=== PATIENT | male | born 1965 | race Two or more races ===

== ENCOUNTER 2024-08-23 11:06 | Inpatient (IN) | payer OTHER ==
[~2024-08-23] VITALS: Ht 195.6 cm; Wt 80.5 kg
[2024-08-23 11:36] LABS: Basophils # (auto) 0 10 ^3/uL (0-0.2); Basophils % (auto) 0.2 % (0.0-2.0); Eosinophils # (auto) 0 10 ^3/uL (0-0.8); Eosinophils % (auto) 0.1 % (0.0-7.0); Hematocrit 36.7 % (41.0-53.0); Hemoglobin 12.1 g/dL (13.5-17.5); Lymphocytes # (auto) 0.8 10 ^3/uL (0.4-5.4); Lymphocytes % (auto) 9.4 % (10.0-50.0); Mean Corpuscular Hemoglobin 27.5 pg (28.0-32.0); Mean Corpuscular Volume 83.3 fL (80.0-100.0); Monocytes # (auto) 0.5 10 ^3/uL (0-1.3); Monocytes % (auto) 6.5 % (0.0-12.0); Neutrophils % (auto) 83.8 % (37.0-80.0); Platelet Count (auto) 294 10^3/uL (140-450); Red Blood Cells 4.41 10^6/uL (4.5-5.90); White Blood Cell 8.3 10^3/uL (4.4-10.8)
[2024-08-23 11:53] LABS: Alanine Aminotransferase 24 U/L (7-40); Albumin 4.7 g/dL (3.2-4.8); Alkaline Phosphatase 91 U/L (46-116); Anion Gap 6 (5-15); Aspartate Aminotransferase 23 U/L (13-40); BUN/Creatinine Ratio 12.4 (10.0-20.0); Blood Urea Nitrogen 23 mg/dL (9-23); Calcium 9.7 mg/dL (8.7-10.4); Carbon Dioxide 23 mmol/L (20-31); Chloride 99 mmol/L (98-107); Glucose 381 mg/dL (74-106); Potassium 4.3 mmol/L (3.5-5.1); Sodium 128 mmol/L (136-145)
[2024-08-23 11:54] LABS: Bilirubin, Total 0.5 mg/dL (0.2-1.0); Total Protein 7.7 g/dL (5.7-8.2)
[2024-08-23 12:00] LABS: Urine Bacteria None Seen /hpf (None Seen)
[2024-08-23 12:50] LABS: Urine Blood 2+ /uL (Negative); Urine Clarity Clear (Clear); Urine Color Colorless (Yellow); Urine Protein, UAD 2+ (Negative); Urine Specific Gravity 1.008 (1.001-1.035); Urine Urobilinogen Normal (Negative); Urine WBC 3 /hpf (0 - 3)
[2024-08-23] MEDS: ONDANSETRON HCL 4 MG/2 ML VIAL IV ONE (14:43)
[2024-08-23 14:45] VITALS: PULSE 98; RESP 16; O2SAT 99
[2024-08-23] MEDS: MORPHINE SULFATE 4 MG/ML SYR/VIAL IV ONE (14:45)
[2024-08-23 16:31] VITALS: PULSE 81; RESP 12; O2SAT 98
[2024-08-23] MEDS ORDERED: MORPHINE SULFATE INJ 2 MG/ml SYRG IV PRN (17:15)
[2024-08-23] MEDS ORDERED: DEXTROSE (50%) 50ML SYRG IV PRN (17:15)
[2024-08-23] MEDS ORDERED: NITROGLYCERIN 0.4 MG SL TAB SL PRN (17:15)
[2024-08-23] MEDS ORDERED: ACETAMINOPHEN 325 MG TAB PO PRN (17:15)
[2024-08-23] MEDS ORDERED: ONDANSETRON HCL 4 MG/2 ML VIAL IV PRN (17:15)
[2024-08-23] MEDS ORDERED: DOCUSATE SOD 100 MG CAP PO PRN (17:15)
[2024-08-23] MEDS: SODIUM CHLORIDE 0.9% 250 ML IV ONE (17:53)
[2024-08-23] MEDS: LACTULOSE 20Gm/30ML SOLN PO ONE (17:53)
[2024-08-23] MEDS: HYDROcodone-ACET 5/325MG TAB PO PRN (18:02)
[2024-08-23 19:50] VITALS: PULSE 87; RESP 11; O2SAT 98
[2024-08-23] MEDS: InsuLIN REG 1unit/0.01ml Soln (100units/ml) SC SCH (22:00)
[2024-08-23 22:52] VITALS: BP 156/86; PULSE 63; PULSE 80; RESP 18; TEMP 98.1; O2SAT 96
[2024-08-23] MEDS: SODIUM CHLOR 0.9% PF (SALINE LOCK) 10ML VIAL/SYR IV SCH (22:59)
[2024-08-23] MEDS: ACCU-CHEK COMFORT CURVE STRIP VI SCH (23:00)
[2024-08-24] VITALS (8 sets, daily range): BP systolic 130–160; BP diastolic 77–94; PULSE 80–96; RESP 18–20; TEMP 98–98.6; O2SAT 96–100
[2024-08-24] MEDS: hydrALAZINE HCL 20 MG/ML VL IV ONE (04:38)
[2024-08-24] MEDS: InsuLIN REG 1unit/0.01ml Soln (100units/ml) SC SCH (06:12)
[2024-08-24 08:05] LABS: Basophils # (auto) 0 10 ^3/uL (0-0.2); Basophils % (auto) 0.3 % (0.0-2.0); Eosinophils # (auto) 0.1 10 ^3/uL (0-0.8); Eosinophils % (auto) 1.2 % (0.0-7.0); Hematocrit 36.6 % (41.0-53.0); Hemoglobin 12.1 g/dL (13.5-17.5); Lymphocytes # (auto) 1.1 10 ^3/uL (0.4-5.4); Lymphocytes % (auto) 13.9 % (10.0-50.0); Mean Corpuscular Hemoglobin 27.4 pg (28.0-32.0); Monocytes # (auto) 0.8 10 ^3/uL (0-1.3); Monocytes % (auto) 10.2 % (0.0-12.0); Neutrophils # (auto) 5.7 10 ^3/uL (1.6-8.6); Neutrophils % (auto) 74.4 % (37.0-80.0); Platelet Count (auto) 308 10^3/uL (140-450); Red Blood Cells 4.41 10^6/uL (4.5-5.90); Red Cell Distribution Width 15.4 % (11.8-14.3); White Blood Cell 7.6 10^3/uL (4.4-10.8)
[2024-08-24 08:31] LABS: Alanine Aminotransferase 23 U/L (7-40); Albumin 4.5 g/dL (3.2-4.8); Alkaline Phosphatase 83 U/L (46-116); Anion Gap 9 (5-15); Aspartate Aminotransferase 25 U/L (13-40); BUN/Creatinine Ratio 10.8 (10.0-20.0); Bilirubin, Total 0.4 mg/dL (0.2-1.0); Blood Urea Nitrogen 21 mg/dL (9-23); Calcium 10.2 mg/dL (8.7-10.4); Carbon Dioxide 25 mmol/L (20-31); Chloride 101 mmol/L (98-107); Total Protein 7.3 g/dL (5.7-8.2)
[2024-08-24 08:38] LABS: Glucose 111 mg/dL (74-106); Sodium 135 mmol/L (136-145)
[2024-08-24] MEDS: LACTULOSE 20Gm/30ML SOLN PO ONE (15:58)
[2024-08-24] MEDS: amLODIPine BESYLATE 5 MG TAB PO ONE (16:09)
[2024-08-24] MEDS: SODIUM CHLORIDE 0.9% 1,000 ML IV SCH (20:53)
[2024-08-25 01:00] VITALS: BP 108/64; PULSE 99; RESP 19; TEMP 98.7; O2SAT 97
[2024-08-25 05:00] VITALS: BP 135/79; PULSE 91; RESP 19; TEMP 98.3; O2SAT 96
[2024-08-25 08:41] VITALS: BP 137/83; PULSE 87; RESP 16; TEMP 98.4; O2SAT 100
[2024-08-25] MEDS: amLODIPine BESYLATE 5 MG TAB PO SCH (10:00)
[2024-08-25 10:14] LABS: Basophils # (auto) 0 10 ^3/uL (0-0.2); Basophils % (auto) 0.5 % (0.0-2.0); Eosinophils # (auto) 0.1 10 ^3/uL (0-0.8); Eosinophils % (auto) 1.4 % (0.0-7.0); Hematocrit 34.7 % (41.0-53.0); Hemoglobin 11.5 g/dL (13.5-17.5); Mean Corpuscular Hemoglobin 27.8 pg (28.0-32.0); Mean Corpuscular Hgb Conc. 33.2 g/dL (32.0-36.0); Mean Corpuscular Volume 83.9 fL (80.0-100.0); Monocytes # (auto) 0.9 10 ^3/uL (0-1.3); Monocytes % (auto) 13.6 % (0.0-12.0); Neutrophils # (auto) 4.8 10 ^3/uL (1.6-8.6); Neutrophils % (auto) 69.5 % (37.0-80.0); Platelet Count (auto) 269 10^3/uL (140-450); Red Blood Cells 4.14 10^6/uL (4.5-5.90); Red Cell Distribution Width 15.2 % (11.8-14.3); White Blood Cell 6.9 10^3/uL (4.4-10.8)
[2024-08-25 10:23] LABS: Chloride 101 mmol/L (98-107); Sodium 134 mmol/L (136-145)
[2024-08-25 10:24] LABS: Anion Gap 6 (5-15); Carbon Dioxide 27 mmol/L (20-31)
[2024-08-25 10:25] LABS: Calcium 9.4 mg/dL (8.7-10.4)
[2024-08-25 10:30] LABS: BUN/Creatinine Ratio 10.4 (10.0-20.0); Blood Urea Nitrogen 20 mg/dL (9-23); Glucose 239 mg/dL (74-106); Magnesium 1.8 mg/dL (1.6-2.6)
[2024-08-25 10:32] LABS: Phosphorus 3.4 mg/dL (2.4-5.1)
[2024-08-25] MEDS ORDERED: CYCL-838 PO (10:33)
[2024-08-25] MEDS ORDERED: GABA300T4 PO (10:33)
[2024-08-25] MEDS ORDERED: LACT10PA2 PO (10:33)
[2024-08-25 13:29] VITALS: BP 148/77; PULSE 87; RESP 17; TEMP 98.2; O2SAT 96
[2024-08-25 14:39] VITALS: BP 148/77; PULSE 87; RESP 17; TEMP 98.2; O2SAT 96
[2024-08-25 17:00] VITALS: BP 142/78; PULSE 88; RESP 17; TEMP 98.1; O2SAT 96
== END 2024-08-25 16:14 | disposition home or self-care (01) | DRG 254 ==
LOC: ER 11:06 → OVERFLOW 17:03 → CENTRAL 21:38
PROVIDERS: ADMIT Nurse Practitioner Family; ATTEND Student in an Organized Health Care Education/Training Program
DX: K59.00 Constipation, unspecified (principal); E87.1 Hypo-osmolality and hyponatremia; E11.22 Type 2 diabetes mellitus with diabetic chronic kidney disease; I12.9 Hypertensive chronic kidney disease with stage 1 through stage 4 chronic kidney disease, or unspecified chronic kidney disease; E78.5 Hyperlipidemia, unspecified; N18.9 Chronic kidney disease, unspecified; G89.29 Other chronic pain; G43.909 Migraine, unspecified, not intractable, without status migrainosus; F17.210 Nicotine dependence, cigarettes, uncomplicated; Z79.4 Long term (current) use of insulin; Z79.899 Other long term (current) drug therapy
CPT/HCPCS: 36415; 71045; 74176; 80048; 80053; 81001; 82962; 83036; 83735; 84100; 84484; 85025; 93005; 96361; 96374; 96375; 99291; G0378; J1815; J2405